=== PATIENT | male | born 1995 | race Caucasian/White ===

== ENCOUNTER 2017-05-13 19:37 | Emergency (ER) | payer OTHER, SELFPAY ==
[~2017-05-13] VITALS: Ht 182.9 cm; Wt 90.9 kg
[2017-05-13 19:49] VITALS: BP 132/78
[2017-05-13] MEDS ORDERED: PRED20TA PO (20:53)
[2017-05-13] MEDS ORDERED: predniSONE 20 MG TAB PO ONE (21:00)
== END 2017-05-13 21:18 | disposition home or self-care (01) ==
LOC: M ED 19:37
DX: K12.2 Cellulitis and abscess of mouth (principal)

== ENCOUNTER 2017-12-28 22:48 | Emergency (ER) | payer SELFPAY | END 2017-12-28 23:26 | disposition home or self-care (01) | LOC: M ED 22:48 | DX: K52.9 Noninfective gastroenteritis and colitis, unspecified (principal) | CPT/HCPCS: 99282 ==

== ENCOUNTER 2019-07-15 04:33 | Emergency (ER) | payer SELFPAY ==
[~2019-07-15] VITALS: Ht 182.9 cm; Wt 95.2 kg
[2019-07-15 04:33] VITALS: BP 172/97
[~2019-07-15 04:33] MED LIST: PRED20TA PO
[2019-07-15] MEDS ORDERED: ANUSOL HC 25MG SUPP PR ONE (05:30)
[2019-07-15] MEDS ORDERED: ANUS25SU PR (05:32)
== END 2019-07-15 06:01 | disposition home or self-care (01) ==
LOC: M ED 04:33
DX: K64.4 Residual hemorrhoidal skin tags (principal); J45.909 Unspecified asthma, uncomplicated; F17.210 Nicotine dependence, cigarettes, uncomplicated

== ENCOUNTER 2024-01-20 15:28 | Emergency (ER) | payer SELFPAY ==
[~2024-01-20] VITALS: Ht 182.9 cm; Wt 81.7 kg
[~2024-01-20 15:28] MED LIST changes: +ANUS25SU PR
[2024-01-20] MEDS ORDERED: BACI500O8 TOP (17:09)
[2024-01-20 17:32] VITALS: BP 145/75; TEMP 98.8; O2SAT 98
== END 2024-01-20 17:34 | disposition home or self-care (01) ==
LOC: M ED 15:28
DX: S81.801A Unspecified open wound, right lower leg, initial encounter (principal); Z79.1 Long term (current) use of non-steroidal anti-inflammatories (NSAID); Y92.9 Unspecified place or not applicable; Y93.9 Activity, unspecified; Y99.9 Unspecified external cause status